=== PATIENT | male | born 1955 | race Caucasian/White ===

== ENCOUNTER 2022-06-12 14:21 | Outpatient (CLI) | payer OTHER, SELFPAY ==
--- NOTE | ~2022-06-12 | XR_ITS ---
XR abdomen/kub 1V 06/12/2022 14:36 INDICATION: Renal stones TECHNIQUE: KUB COMPARISON: None FINDINGS: Bowel gas pattern is normal. There is no evidence of free air, mass, organomegaly, ascites or obstruction. There is a right renal stone at the lower pole. There are cholecystectomy clips. The re is a calcification right lateral aspect of L4. A ureteral stone is not excluded. The bones appear intact. IMPRESSION: 1: Right nephrolithiasis. Possible right ureteral stone at the L4 level.. Reviewed, dictated and finalized at location A.
== END 2022-06-12 14:22 | disposition home or self-care (01) ==
LOC: ANHIMG 14:25
PROVIDERS: PCP Internal Medicine; Visit Provider Urology
DX: N20.0 Calculus of kidney (principal)
CPT/HCPCS: 74018

== ENCOUNTER 2022-07-12 14:41 | Outpatient (CLI) | payer OTHER, SELFPAY ==
--- NOTE | ~2022-07-12 | CT_ITS ---
EXAMINATION: CT abdomen pelvis wo con DATE: 07/12/2022 15:00 INDICATION: Calcium kidney stone TECHNIQUE: Computed tomography (CT) of the abdomen and pelvis was performed without intravenous contr ast. Automated exposure control and iterative reconstruction technique were employed. The dose-length product was 568.27 mGy-cm. COMPARISON: None FINDINGS: Discoid atelectasis at the lingula and bilateral lower lobes. Heart size is normal. No pericardial or pleural effusion. Cholecystectomy clips the gallbladder fossa. Diffuse hepatic steatosis. Spleen, pa ncreas and bilateral adrenal glands are normal. 1 mm nonobstructing stone at the upper pole of the mo derately atrophic left kidney. Compensatory protrusio the right kidney with additional 4 mm stone at a lower pole calyx. No ureteral stones or hydronephrosis. There is moderate colonic diverticulosis wi th a descending and sigmoid colon predominance and without adjacent inflammatory change to suggest di verticulitis. Small bowel and appendix are normal. A few small bladder diverticula likely related to chronic outlet obstruction from the enlarged prostate which measures 5.5 x 4.6 cm. No free intraperit juarez gas or fluid. No pathologically enlarged abdominal or pelvic lymphadenopathy. Moderate to sever e lumbar and lower thoracic spondylosis. Mild to moderate bilateral hip osteoarthritis. IMPRESSION: 1. Nonobstructing bilateral nephrolithiasis with 4 mm right-sided and 1 mm left-sided stones. 2. Diverticulosis. 3. A few small bladder diverticula likely related to chronic outlet obstruction from the enlarged pro state. 4. Diffuse hepatic steatosis. Reviewed, dictated and finalized at location A. IMPRESSION: 1. Nonobstructing bilateral nephrolithiasis with 4 mm right-sided and 1 mm left -sided stones. 2. Diverticulosis. 3. A few small bladder diverticula likely related to chronic outlet obstruction from the enlarged prostate. 4. Diffuse hepatic steatosis.
== END 2022-07-12 14:42 | disposition home or self-care (01) ==
PROVIDERS: PCP Family Medicine; Visit Provider Urology
DX: N20.0 Calculus of kidney (principal); K57.90 Diverticulosis of intestine, part unspecified, without perforation or abscess without bleeding; N32.3 Diverticulum of bladder; K76.0 Fatty (change of) liver, not elsewhere classified
CPT/HCPCS: 74176

== ENCOUNTER 2023-02-06 10:30 | Outpatient (CLI) | payer OTHER, SELFPAY ==
--- NOTE | ~2023-02-06 | XR_ITS ---
Supine and upright views of the abdomen Clinical history: Kidney stone COMPARISON: 06/12/2022 Findings: Bowel gas pattern is nonspecific. No evidence for obstruction or free air. Stable 4 mm righ t renal stone noted. Cholecystectomy clips noted. Osseous structures are intact. Impression: Stable 4 mm right renal stone. Reviewed, dictated and finalized at [facility]. Impression: Stable 4 mm right renal stone.
== END 2023-02-06 10:31 | disposition home or self-care (01) ==
PROVIDERS: PCP Family Medicine; Visit Provider Urology
DX: N20.0 Calculus of kidney (principal)
CPT/HCPCS: 74018

== ENCOUNTER 2023-03-06 08:04 | Outpatient (CLI) | payer OTHER, SELFPAY ==
--- NOTE | 2023-03-06 08:11 | ECG_ITS ---
Measurements Intervals [place] Rate: 63 P: 33 CO: 178 QRS: -3 QRSD: 102 T: 12 QT: 416 QTc: 427 Interpretive Statements SINUS RHYTHM LOW QRS VOLTAGE IN PRECORDIAL LEADS [QRS DEFLECTION < 1.0 mV IN CHEST LEADS] NO PREVIOUS ECG AVAILABLE FOR COMPARISON Electronically Signed On 03-06-2023 18:30:23 CDT by Tunde Blake M.D.
[2023-03-06 08:35] LABS: Anion Gap 5 mmol/L (8-16); Blood Urea Nitrogen 26 mg/dL (9-20); Calcium 8.7 mg/dL (8.4-10.2); Carbon Dioxide 30 mmol/L (22-30); Chloride 99 mmol/L (98-107); Estimated Glomerular Filt Rate > 60; Glucose 127 mg/dL (65-110); Potassium 4.5 mmol/L (3.4-5.0); Sodium 134 mmol/L (137-145)
[2023-03-06 08:40] LABS: Partial Thromboplastin Time 27.1 SECONDS (22.3-36.8); Prothrombin Time 13.2 Seconds (11.1-14.7)
== END 2023-03-06 08:05 | disposition home or self-care (01) ==
LOC: ANHSURGERY 08:07
PROVIDERS: Anesthesiology; PCP Family Medicine; Visit Provider Urology
DX: N20.0 Calculus of kidney (principal); Z01.818 Encounter for other preprocedural examination; I10 Essential (primary) hypertension; Z51.81 Encounter for therapeutic drug level monitoring
CPT/HCPCS: 36415; 80048; 85610; 85730; 87086; 93005

== ENCOUNTER 2023-03-14 00:29 | Day surgery (SDC) | payer OTHER, SELFPAY ==
[2023-02-28 14:05] VITALS: BMI 34.4
--- NOTE | 2023-02-28 14:29 | PC.NURSE ---
Addendum entered by Jackie Escalera RN 03/03/23 14:12: AMENDED MEDS TO BE TAKEN ON MORNING OF SURGERY: ONLY TAKE AMLODIPINE WITH SIPS OF WATER BEFORE COMING INTO HOSPITAL ON DAY OF SURGERY(DON'T TAKE THE IRBESARTAN THAT MORNING). PHONED PATIENT AND LEFT MESSAGE. 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 JACKIE ESCALERA RN. Original Note: Report to the Outpatient Waiting Room, [facility] at time _6:00AM on date __03/14/23 . Planned Procedure Time: ___7:30AM . Time changes happen often and if your time is changed the preop area will call you the afternoon before. - You and your visitor will be asked to self-screen and do not enter if you have any COVID symptoms. - A mask is optional within the hospital at this time. Patients may have clear liquids (water, carbonated beverages, clear teas, apple juice) until 3 hours prior to surgery with a maximum of 20 ounces. - No food from midnight until time of surgery Take the following medications with a SIP of water the morning of surgery: __AMLODIPINE, IRBESARTAN DO NOT STOP ANY OF YOUR OTHER PRESCRIPTION MEDICATIONS PRIOR TO SURGERY ?EXCEPT THE FOLLOWING Medications to discontinue per physician ____NONE Date to take last dose Please no make-up, nail yoruba, hairspray, perfume, deodorant, or body powder the day of surgery. No jewelry (including any body piercings) or valuables the day of surgery, leave them at home. Please take a shower or bath the night before, or the morning of, surgery with an antibacterial soap. Wear comfortable, loose fitting clothing. Children are encouraged to wear pajamas. - Jewelry must be removed prior to entering the operating room. Rings and piercings that are not removed may be cut off. - The hospital will not accept responsibility for valuables. - Please leave all valuables, including medications, at home the day of surgery. If you are going home after surgery, a licensed lifter/driver must drive you home. - NO public transportation without another adult if you receive anesthesia. - We recommend that an adult stay with you for 24 hours following discharge. - We also recommend that you do not drive, make important decision, drink alcoholic beverages, or take any drugs that were not prescribed by your health care provider for at least 24 hours after your discharge time. Follow any additional instructions given to you from your surgeon. If you or anyone in your household have experienced Covid symptoms in the past week, please notify your surgeon or the nurse liaison at the phone number below for possible testing. Telephone instructions given to __PATIENT and asked if any additional questions and then verbalized understanding. Patient advised to call surgeon office or pre surgery nurse liaison [phone] if any additional questions.
[2023-03-14] VITALS (8 sets, daily range): BP systolic 114–146; BP diastolic 71–91; PULSE 57–73; RESP 10–18; TEMP 36.3–36.7; O2SAT 98–100
--- NOTE | ~2023-03-14 | XR_ITS ---
Supine and upright views of the abdomen Clinical history: Lithotripsy COMPARISON: 02/06/2023 Findings: Bowel gas pattern is nonspecific. No evidence for obstruction or free air. Probable 4 mm ri ght lower pole renal stone present. Cholecystectomy clips noted. Osseous structures are intact. Impression: 4 mm right lower pole renal stone. Reviewed, dictated and finalized at [facility]. Impression: 4 mm right lower pole renal stone.
--- NOTE | 2023-03-14 06:57 | P.PNAN_ITS ---
Anes - Initial Pre Proc Eval Procedure: Operation Date: 03/14/23 07:30 Proposed Procedures p Right Renal Extracorporeal Shock Wave Lithotripsy - Seng Mcwilliams MD Date/Time: 03/14/23 06:57 Surgeon: Seng Mcwilliams MD Pre Op Diagnosis: Rt Renal Kidney Stones Patient Data Age: 67 Gender: M Height: 1.78 m Weight: 110.5 kg Last Vital Signs Temp 36.7 C 03/14/23 06:47 Pulse 73 03/14/23 06:47 Resp 18 03/14/23 06:47 BP 146/91 H 03/14/23 06:47 Pulse Ox 98 03/14/23 06:47 O2 Del Method Room Air 03/14/23 06:47 Allergies Allergy/AdvReac Type Severity Reaction Status Date / Time No Known Allergies Allergy Verified 03/14/23 06:41 Home Medications Medication Instructions Recorded Confirmed Type amlodipine 5 mg tablet 5 mg PO QAM 02/28/23 03/14/23 History hydrochlorothiazide 25 mg tablet 25 mg PO QAM 02/28/23 03/14/23 History ibuprofen 200 mg capsule 400 mg PO Q6H PRN Pain 02/28/23 03/14/23 History irbesartan 150 mg tablet 150 mg PO QAM 02/28/23 03/14/23 History Patient hx anesthesia problems: none Family hx anesthesia problems: none Results Review: All pre-operative results and documents have been reviewed as part of the pre- operative evaluation. [facility] Past Medical History Medical History Hypertension Surgical History Surgical History H/O detached retina repair H/O hernia repair History of cholecystectomy Family History Family History Father Heart disease Mother Breast cancer Sibling Diabetes mellitus Daughter Thyroid disorder Grandparent Hypertension Grandparent Diabetes mellitus Cerebrovascular accident Social History Social History Social History: Caffeine-coffee Smoking status: Never smoker Alcohol intake: current Drinks per week: 1 Alcohol use details: Wine Substance use: never Living arrangements: other Additional living arrangements comments: S.O. Occupation/Education: other Additional occupation/education comments: Artist Spiritual care concerns: No Anes - Eval Final PreProcedure Day of Procedure 03/14/23 06:57 Patient weight: obese Heart: regular rate and rhythm Lungs: clear to auscultation Airway: Mallampati scale class II Neurological: alert and oriented Last oral intake: >/= 8 hours ASA classification: III Emergent: no Anesthetic plan: proceed Anesthesia type and monitoring: general GIVS and standard monitoring Results Review: All pre-operative results and documents have been reviewed as part of the pre- operative evaluation. Informed Consent: The patient's anesthetic plan and its attendant risks and benefits were discussed with the patient/family/POA. Questions were solicited and answers provided to the satisfaction of the patient/family/POA.
--- NOTE | 2023-03-14 06:58 | P.PNAN_ITS ---
Anes - Initial Pre Proc Eval Procedure: Operation Date: 03/14/23 07:30 Proposed Procedures p Right Renal Extracorporeal Shock Wave Lithotripsy - Seng Mcwilliams MD Date/Time: 03/14/23 06:58 Surgeon: Seng Mcwilliams MD Pre Op Diagnosis: Rt Renal Kidney Stones Patient Data Age: 67 Gender: M Height: 1.78 m Weight: 110.5 kg Last Vital Signs Temp 36.7 C 03/14/23 06:47 Pulse 73 03/14/23 06:47 Resp 18 03/14/23 06:47 BP 146/91 H 03/14/23 06:47 Pulse Ox 98 03/14/23 06:47 O2 Del Method Room Air 03/14/23 06:47 Allergies Allergy/AdvReac Type Severity Reaction Status Date / Time No Known Allergies Allergy Verified 03/14/23 06:41 Home Medications Medication Instructions Recorded Confirmed Type amlodipine 5 mg tablet 5 mg PO QAM 02/28/23 03/14/23 History hydrochlorothiazide 25 mg tablet 25 mg PO QAM 02/28/23 03/14/23 History ibuprofen 200 mg capsule 400 mg PO Q6H PRN Pain 02/28/23 03/14/23 History irbesartan 150 mg tablet 150 mg PO QAM 02/28/23 03/14/23 History Patient hx anesthesia problems: none Family hx anesthesia problems: none Results Review: All pre-operative results and documents have been reviewed as part of the pre- operative evaluation. [facility] Past Medical History Medical History Hypertension Surgical History Surgical History H/O detached retina repair H/O hernia repair History of cholecystectomy Family History Family History Father Heart disease Mother Breast cancer Sibling Diabetes mellitus Daughter Thyroid disorder Grandparent Hypertension Grandparent Diabetes mellitus Cerebrovascular accident Social History Social History Social History: Caffeine-coffee Smoking status: Never smoker Alcohol intake: current Drinks per week: 1 Alcohol use details: Wine Substance use: never Living arrangements: other Additional living arrangements comments: S.O. 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 Informed Consent: The patient's anesthetic plan and its attendant risks and benefits were discussed with the patient/family/POA. Questions were solicited and answers provided to the satisfaction of the patient/family/POA.
[2023-03-14] MEDS: LACTATED RINGERS 1,000 ML 30 ML IV CONT (07:03)
--- NOTE | 2023-03-14 07:11 | WPDHPUPDATE1 ---
History and Physical Update Update Date/Time: 03/14/23 07:11 History and Physical has been reviewed, including an updated exam of the patient. There are NO changes in the patient's condition. Risks, benefits, and alternatives have been discussed and questions answered. Patient agrees to proceed with procedure. Proceed with right renal eswl
[2023-03-14] MEDS: ceFAZolin 2 GM/D5W 50 ML 2 GM/50 ML BAG IVPB (07:25)
--- NOTE | 2023-03-14 08:03 | W.PM.PROC2 ---
Procedure Note - Detailed Date of Procedure 03/14/23 Pre-op Diagnosis Rt Renal Kidney Stones Post-op Diagnosis Same Procedure Performed Lithotripsy right renal calculus Surgeon Seng Mcwilliams MD Anesthesia General Description of Procedure Patient is taken the operative suite correctly identified. Once anesthesia was obtained the stone was localized in both planes. Two thousand five hundred shocks were given to the stone. Patient tolerated the procedure well without any complications. He is taken recovery stable condition. He will follow-up in 7-10 days with KUB. Disc placed dictation please send a copy of op note to my office Estimated Blood Loss 0 Drains No Packing No Pathology None sent Complications No immediate complications Condition Stable Disposition PACU
== END 2023-03-14 10:00 | disposition home or self-care (01) ==
PROVIDERS: PCP Family Medicine; Visit Provider Urology
PROC: (CPT 50590; principal; 2023-03-14 07:30)
DX: N20.0 Calculus of kidney (principal); I10 Essential (primary) hypertension; E66.9 Obesity, unspecified; Z68.35 Body mass index [BMI] 35.0-35.9, adult
CPT/HCPCS: 50590; 36415; 74018; 80048; 85610; 85730; 87086; 93005; J0131; J0690; J1100; J2250; J2405; J2704; J3010; J7120

== ENCOUNTER 2023-03-26 14:25 | Outpatient (CLI) | payer OTHER, SELFPAY ==
--- NOTE | ~2023-03-26 | XR_ITS ---
EXAM: XR abdomen/kub 1V DATE: 03/26/2023 14:38 HISTORY: CALCIUM KIDNEY STONE . COMPARISON: 03/14/2023. FINDINGS: Cholecystectomy clips. Clear lung bases. Normal bowel gas pattern. No organomegaly. 5 mm ri ght lower pole calcification, stable. Pelvic phleboliths. Lumbar degenerative disc disease. Mild bila teral hip osteoarthritis. IMPRESSION: Stable right nephrolithiasis. Reviewed, dictated and finalized at location K.
== END 2023-03-26 14:26 | disposition home or self-care (01) ==
PROVIDERS: PCP Family Medicine; Visit Provider Urology
DX: N20.0 Calculus of kidney (principal)
CPT/HCPCS: 74018

== ENCOUNTER 2023-05-13 08:52 | Outpatient (CLI) | payer OTHER, SELFPAY ==
[2023-05-13 17:00] LABS: Basophils Percent Auto 0.5 % (0.2-1.2); Eosinophils Absolute Auto 0.2 K/mm3 (0-0.3); Eosinophils Percent Auto 3.2 % (0-4.4); Hematocrit 42.3 % (42.0-52.0); Hemoglobin 13.9 g/dL (14.0-18.0); Immature Granulocyte Absolute 0.03 K/mm3 (0.00-0.031); Immature Granulocyte Percent A 0.5 % (0-0.5); Lymphocytes Absolute Auto 1.39 K/mm3 (0.9-3.2); Lymphocytes Percent Auto 22.6 % (18.3-44.2); Mean Corpuscular HGB Conc 32.9 g/dl (32-36); Mean Corpuscular Hemoglobin 30.7 pg (26-34); Mean Corpuscular Volume 93.4 fl (80-100); Mean Platelet Volume 9.7 fl (7.4-10.4); Monocytes Absolute Auto 0.5 K/mm3 (0.1-0.6); Monocytes Percent Auto 8.4 % (2.6-8.5); Neutrophils Percent Auto 64.8 % (45.5-73.1); Platelet Count Result 169 k/mm3 (150-375); Red Blood Count 4.53 M/mm3 (4.6-6.20); Red Cell Distribution Width 12.9 % (11.5-14.5); White Blood Count 6.2 K/mm3 (4.5-10.0)
[2023-05-13 18:46] LABS: Alanine Aminotransferase 47 U/L (6-50); Albumin Level 4.4 g/dL (3.5-5.1); Alkaline Phosphatase 68 U/L (38-126); Anion Gap 6 mmol/L (8-16); Aspartate Amino Transferase 41 U/L (17-59); Bilirubin,Total 0.6 mg/dL (0.2-1.3); Blood Urea Nitrogen 24 mg/dL (9-20); Calcium 9.2 mg/dL (8.4-10.2); Carbon Dioxide 28 mmol/L (22-30); Chloride 103 mmol/L (98-107); Cholesterol 180 mg/dL (0-200); Estimated Glomerular Filt Rate > 60; Glucose 124 mg/dL (65-110); HDL Direct 33 mg/dL; Potassium 4.2 mmol/L (3.4-5.0); Sodium 137 mmol/L (137-145); Triglycerides 135 mg/dL (<150)
[2023-05-13 18:57] LABS: LDL Cholesterol Direct 113 mg/dL
== END 2023-05-13 08:53 | disposition home or self-care (01) ==
LOC: ANHGOSHLAB 08:54
PROVIDERS: PCP Family Medicine; Visit Provider Family Medicine
DX: R53.83 Other fatigue (principal); Z13.228 Encounter for screening for other metabolic disorders; Z13.220 Encounter for screening for lipoid disorders; Z13.29 Encounter for screening for other suspected endocrine disorder
CPT/HCPCS: 36415; 80053; 80061; 84443; 85025

== ENCOUNTER 2023-10-01 09:57 | Outpatient (CLI) | payer OTHER, SELFPAY ==
--- NOTE | ~2023-10-01 | XR_ITS ---
XR abdomen/kub 1V DATE: 10/01/2023 10:17 INDICATION: Calcium kidney stone TECHNIQUE: AP projection, 2 views COMPARISON: None FINDINGS: Stable lower pole approximately 5 mm right renal calcified calculus, not significantly escoto ged since 03/26/2023. Surgical clips, right upper quadrant, consistent with cholecystectomy. The psoas shadows are intact. No visceromegaly is detected. No evidence of bowel obstruction. IMPRESSION: Stable approximately 5 mm lower pole right renal nonobstructing calcified calculus lying status post cholecystectomy Reviewed, dictated and finalized at Location A. Reviewed, dictated and finalized at location B. MER LOADER IMPRESSION: Stable approximately 5 mm lower pole right renal nonobstructing diane cified calculus lying status post cholecystectomy
== END 2023-10-01 09:58 | disposition home or self-care (01) ==
LOC: ANHIMG 09:59
PROVIDERS: PCP Family Medicine; Visit Provider Urology
DX: N20.0 Calculus of kidney (principal); Z90.49 Acquired absence of other specified parts of digestive tract
CPT/HCPCS: 74018

== ENCOUNTER 2023-12-08 09:28 | Outpatient (CLI) | payer OTHER, SELFPAY ==
[2023-12-08 19:15] LABS: Hemoglobin A1C 6.4 % (<5.7)
== END 2023-12-08 09:29 | disposition home or self-care (01) ==
LOC: ANHGOSHLAB 09:29
PROVIDERS: PCP Family Medicine; Visit Provider Nurse Practitioner Family
DX: R73.01 Impaired fasting glucose (principal); R63.5 Abnormal weight gain
CPT/HCPCS: 36415; 83036

== ENCOUNTER 2024-05-19 09:47 | Outpatient (CLI) | payer OTHER, SELFPAY ==
[2024-05-19 19:30] LABS: Basophils Absolute Auto 0.1 K/mm3 (0.0-0.1); Basophils Percent Auto 0.7 % (0.2-1.2); Eosinophils Absolute Auto 0.2 K/mm3 (0-0.3); Eosinophils Percent Auto 3.1 % (0-4.4); Hematocrit 44.1 % (42.0-52.0); Hemoglobin 14.7 g/dL (14.0-18.0); Immature Granulocyte Absolute 0.05 K/mm3 (0.00-0.031); Immature Granulocyte Percent A 0.7 % (0-0.5); Lymphocytes Absolute Auto 2.13 K/mm3 (0.9-3.2); Lymphocytes Percent Auto 30.1 % (18.3-44.2); Mean Corpuscular HGB Conc 33.3 g/dl (32-36); Mean Corpuscular Hemoglobin 31.7 pg (26-34); Mean Corpuscular Volume 95.2 fl (80-100); Mean Platelet Volume 9.5 fl (7.4-10.4); Monocytes Absolute Auto 0.5 K/mm3 (0.1-0.6); Monocytes Percent Auto 7.5 % (2.6-8.5); Neutrophils Absolute Auto 4.1 K/mm3 (1.3-6.7); Neutrophils Percent Auto 57.9 % (45.5-73.1); Platelet Count Result 165 k/mm3 (150-375); Red Blood Count 4.63 M/mm3 (4.6-6.20); Red Cell Distribution Width 12.6 % (11.5-14.5); White Blood Count 7.1 K/mm3 (4.5-10.0)
[2024-05-19 20:00] LABS: Alanine Aminotransferase 46 U/L (6-50); Albumin Level 4.8 g/dL (3.5-5.1); Alkaline Phosphatase 64 U/L (38-126); Anion Gap 6 mmol/L (4-12); Aspartate Amino Transferase 46 U/L (17-59); Bilirubin,Total 0.8 mg/dL (0.2-1.3); Blood Urea Nitrogen 22 mg/dL (9-20); Calcium 9.5 mg/dL (8.4-10.2); Carbon Dioxide 29 mmol/L (22-30); Chloride 103 mmol/L (98-107); Estimated Glomerular Filt Rate > 60; Glucose 129 mg/dL (65-110); Potassium 4.1 mmol/L (3.4-5.0); Sodium 138 mmol/L (137-145); Uric Acid 8.5 mg/dL (3.5-8.5)
[2024-05-19 20:57] LABS: Erythrocyte Sedimentation Rate 12 mm/hr (0-20)
[2024-05-19 21:09] LABS: Folic Acid > 20.0 ng/mL (2.76->20)
== END 2024-05-19 09:48 | disposition home or self-care (01) ==
LOC: ANHGOSHLAB 09:48
PROVIDERS: PCP Family Medicine; Visit Provider Family Medicine
DX: M10.9 Gout, unspecified (principal); Z13.228 Encounter for screening for other metabolic disorders; R63.5 Abnormal weight gain; E55.9 Vitamin D deficiency, unspecified; Z13.29 Encounter for screening for other suspected endocrine disorder; R53.83 Other fatigue
CPT/HCPCS: 36415; 80053; 82306; 82533; 82607; 82746; 84443; 84550; 85025; 85652

== ENCOUNTER 2024-05-19 10:03 | Outpatient (CLI) | payer OTHER, SELFPAY ==
--- NOTE | ~2024-05-19 | XR_ITS ---
EXAMINATION: XR knee RT min 4V DATE: 05/19/2024 10:18 INDICATION: Posterior right knee pain post fall 6 months prior TECHNIQUE: Weight bearing anteroposterior and Salazar, sunrise, and flexed lateral views of the rig ht knee were obtained COMPARISON: None. FINDINGS: Alignment is normal. No fracture. There is chondrocalcinosis at the medial and lateral compartments of the knee. There are small marginal osteophytes in all 3 compartments with mild joint space narrowi ng in the medial compartment. No right knee joint effusion. Nonspecific prepatellar soft tissue swell ing. IMPRESSION: 1. Chondrocalcinosis with mild medial compartment predominant tricompartmental osteoarthritis at the right knee. Reviewed, dictated and finalized at location B.
== END 2024-05-19 10:04 ==
PROVIDERS: PCP Family Medicine; Visit Provider Family Medicine
DX: M25.561 Pain in right knee (principal); M94.261 Chondromalacia, right knee; M17.11 Unilateral primary osteoarthritis, right knee
CPT/HCPCS: 73564

== ENCOUNTER 2024-09-09 08:31 | Outpatient (CLI) | payer OTHER, SELFPAY ==
[2024-10-05 12:33] VITALS: BMI 36.9
--- NOTE | 2024-10-05 12:33 | P.SLEEP_ITS ---
Sleep Study Date of Study: 09/09/24 Ordering Provider: Genevieve Venegas DO Interpreting Physician: Genevieve Venegas DO Sleep Study Type: CPAP Titration Height: 1.75 m Weight: 113.398 kg Body Mass Index: 36.9 Neck Circumference (inches): 17 [place]: 13 Reason for Sleep Study Diagnosed with TANA in 2004. CPAP machine is 10+ years old. Gained weight and feels unrefreshed in the morning. Sleep History The patient is a 68-year-old male with previously diagnosed sleep apnea on CPAP that had a sleep study ordered for evaluation of daytime hypersomnia despite CPAP use. The patient denies awakening from sleep short of breath. He rarely awakens at night with heartburn, belching or cough. He rarely snores but is never loud enough that others complain. He rarely has trouble sleeping when he has a cold. He rarely wakes up gasping for air throughout the night. He denies having breathing problems at night observed by himself or others. He occasionally sweats excessively at night. He denies having heart palpitations or irregular heartbeats during the night. He occasionally falls asleep during the day but never while driving. He denies sleep paralysis, cataplexy and hypnagogic / hypnopompic hallucinations. He occasionally has trouble at school or work due to sleepiness. He denies feeling afraid of going to sleep. He rarely has nightmares. He frequently remembers his dreams. He occasionally has thoughts racing through his mind. He rarely feels sad, depressed or anxious. He rarely notices parts of his body jerk. He rarely kicks during the night. He occasionally has crawling and aching feelings in his legs and occasionally has leg pain during the night. The patient's bed partner states that she notices that his legs 0 while he is asleep. He rarely grinds his teeth during sleep and rarely awakens with morning jaw pain. He is frequently bothered by pain during the day and occasionally awakened by pain during the night. He frequently wakes up feeling stiff in the morning. He frequently wakes up with sore or achy muscles. He frequently wakes up with pain in the neck, spine or other joints. He goes to bed at 10:00 p.m. on both weekdays and weekends. It takes him 5-10 minutes to fall asleep. He wakes up 2-3 times throughout the night to urinate and is able to fall back asleep within 10-15 minutes. He wakes up between 6-7 a.m. on both weekdays and weekends. He typically gets 8-9 hours of sleep per night. He will stay in bed for 30 minutes after waking up in the morning. He currently lives with his partner. He denies consuming any caffeinated beverages within 2 hours of bedtime. He denies engaging in physical exercise before bedtime. He will read before falling asleep. He will take naps in the afternoon that are refreshing. He consumes 2-3 cups of caffeinated beverage per day. He will drink wine occasionally. He denies tobacco and recreational drug use. [facility] Past Medical History Medical History Hypertension Surgical History Surgical History H/O detached retina repair H/O hernia repair History of cholecystectomy Family History Family History Father Heart disease Mother Breast cancer Sibling Diabetes mellitus Daughter Thyroid disorder Grandparent Hypertension Grandparent Diabetes mellitus Cerebrovascular accident Social History Social History Smoking status: Never smoker Alcohol intake: current Drinks per week: 1 Alcohol use details: Wine Substance use: never Substance use type: does not use Do You Feel Safe in your Home?: Yes Lack of Transportation: No Lack of Food: Never True Current Housing: I Have Housing Concerned About Future Housing: No Difficulty Paying Gas/Electric Bills: No Difficulty Paying for Meds: No Currently Unemployed: No Education: Master's Degree or Higher Difficulty w/ Childcare or Family Care: No Living arrangements: other Additional living arrangements comments: S.O. Occupation/Education: other Additional occupation/education comments: Artist Spiritual care concerns: No Medications Home Medications Medication Instructions Recorded Confirmed Type ibuprofen 200 mg capsule 400 mg PO Q6H PRN Pain 02/28/23 07/01/24 History eszopiclone 2 mg tablet (Lunesta) 2 mg PO QHS #1 tablet 07/01/24 07/01/24 Rx amlodipine 5 mg tablet 5 mg PO QAM #90 tabs 07/15/24 Rx hydrochlorothiazide 25 mg tablet 25 mg PO QAM #90 tabs 07/15/24 Rx irbesartan 150 mg tablet 150 mg PO QAM #90 tabs 07/15/24 Rx Sleep Procedure A full night polysomnogram using the [employer] SleepTivra multi-channel system bunny rded the standard physiologic parameters including EEG, EOG, submentalis EMG, anterior tibialis EMG, EKG, body position, nasal and oral airflow using nasal pressure sensor and thermistor.? Respiratory parameters of chest and abdominal movements were recorded with Respiratory Inductance Plethysmography belts. Oxygen saturation was recorded by pulse oximetry. Video monitoring was also performed. Sleep stages, periodic limb movements, and EEG arousals were scored in 30 second epochs according to the criteria of the AASM Scoring Manual. The Apnea-Hypopnea Index was calculated using [facility] guidelines for definition of hypopnea with 4% O2 desaturations while scoring respiratory events. Sleep Architecture The total recording time was 474.5 minutes.? The total sleep time was 423.0 minutes. Sleep latency was 8.3 minutes. REM latency was 144.0 minutes. Sleep efficiency was 89.1%. The patient had 31 awakenings for an awakening index of 4.4. Wake after Sleep Onset time was 43.5 minutes. The patient spent 20.0 minutes, 4.7% of total sleep time in Stage N1. The patient spent 305.5 minutes, 72.2% in Stage N2. The patient spent 10.5 minutes, 2.5% in Stage N3. The patient spent 87.0 minutes, 20.6% in Stage REM. Respiratory Analysis The patient had 9 hypopneas for an overall Apnea Hypopnea Index of 1.3 events per hour. The REM Apnea Hypopnea Index was 3.4. The NREM Apnea Hypopnea Index was 0.7. The patient had a Central Apnea Hypopnea Index of 0. There were 3 Respiratory Effort Related Arousals resulting in a RERA index of 0.4 events per hour. The Respiratory Disturbance Index is 1.7 events per hour. There was no evidence of [place]on-Mathias Respirations. The patient was started on CPAP 8 cm H2O and titrated to CPAP 12 cm H2O due to hypopneas. The patient was able to fall asleep starting on CPAP 8 cm H2O. The patient was able to achieve REM sleep starting on CPAP 8 cm H2O. The patient was able to achieve a residual AHI less than 5 with both NREM and REM sleep on all of the pressures. The patient was in the left lateral position for the entire study. On CPAP 12 cm H2O, the patient spent 30 minutes in NREM and 45 minutes in REM sleep with 1 hypopnea, resulting in an AHI of 0.8. The patient had a sleep efficiency of 92% on this pressure setting. Arousals There were 236 total arousals for an arousal index of 33.5. There were 57 spontaneous arousals for an index of 8.1. ?There was 1 arousal due to a respiratory event for an index of 0.1. There were 171 arousals due to periodic limb movements for an index of 24.3.? There were 7 arousals due to isolated limb movements for an index of 1.0. Periodic Limb Movements The patient had 16 isolated limb movements with an index of 2.3. The patient had 631 periodic limb movements with index of 89.5, which is elevated (normal < 15). Patient had a total of 647 limb movements with a total limb movement index of 91.8. Oximetry Data The patient had an average oxygen saturation of 94.1% in sleep with a minimum oxygen saturation of 91.0% and a maximum oxygen saturation of 98.0%. The patient had 13 oxygen desaturations that were 4% or greater resulting in an Oxygen Desaturation Index of 1.8.? The patient spent 0 minutes of total sleep time with an oxygen saturation below 88%. Snoring Profile Snoring was not present during this study. Cardiac Profile The EKG showed normal sinus rhythm with rare PVCs. The patient had an average pulse rate of 62.3 bpm with a minimum pulse rate of 51.0 bpm and a maximum pulse rate of 91.0 bpm. ? EEG Profile No signs of seizure activity seen. Assessment and Plan Assessment and Plan (1) TANA (obstructive sleep apnea): Code(s): G47.33 - Obstructive sleep apnea (adult) (pediatric) Status: Acute Assessment and Plan: The patient was started on CPAP 8 cm H2O and titrated to CPAP 12 cm H2O due to hypopneas. The patient's sleep apnea resolved on multiple pressure settings but he did best on the final pressure. I recommend that the patient be prescribed Resmed CPAP 12 cm H2O, size medium Resmed Mirage Quattro Full face mask, CPAP filters/tubing and heated humidity. This should be used with all episodes of sleep.? Compliance should be reviewed within 31-90 days of starting therapy for usage greater than 4 hours per night greater than 70% of the nights. The patient should be asked about symptoms such as?excessive daytime sleepiness, quality of sleep, decreased nocturia, increased?mental functioning such as memory, mood, and concentration. (2) PLMD (periodic limb movement disorder): Code(s): G47.61 - Periodic limb movement disorder Status: Acute Assessment and Plan: The patient had a significant number of limb movements during the study with the majority being periodic in nature. Approximately 27% of the periodic limb movements caused arousals in the patient's sleep. The patient's sleep history is somewhat suggestive of Restless Leg Syndrome. I recommend that the patient have a serum ferritin drawn for evaluation of iron deficiency anemia. If the patient has a serum ferritin less than 75 ng/mL, I recommend starting a daily iron supplement and a Vitamin C supplement for better absorption. If the serum ferritin is greater than 75 ng/mL, I recommend starting a dopamine agonist and titrating the dose until symptoms resolve. There are nonpharmacological methods to treat limb movements including daily exercise, stretching calf muscles before bed, avoiding excessive amounts of caffeine and alcohol, vitamin B supplementation, magnesium lotion massaged into legs before bed, and use of a weighted blanket. Data The data obtained during this sleep study is adequate for interpretation. Certification This sleep study has been reviewed by a board certified sleep medicine physician.
== END 2024-09-10 07:13 | disposition home or self-care (01) ==
PROVIDERS: PCP Family Medicine; Visit Provider Family Medicine
DX: G47.33 Obstructive sleep apnea (adult) (pediatric) (principal); G47.61 Periodic limb movement disorder
CPT/HCPCS: 95811